=== PATIENT | female | born 1960 | race Caucasian/White ===

== ENCOUNTER 2018-03-02 13:49 | Emergency (ER) | payer MEDICARE, OTHER, SELFPAY ==
[2018-03-02 13:52] VITALS: BP 138/85; PULSE 60; RESP 18; TEMP 36.2; O2SAT 99
--- NOTE | 2018-03-02 14:49 | DI.RAD.S_ITS ---
PROCEDURE: XR RIBS BI 3V INDICATIONS: on going pain TECHNIQUE: 2 views of the left and 2 views of right ribs, along with an AP chest were acquired. COMPARISON: [facility], CR, CHEST 2VW, 08/01/2013, 14:53. [facility], CT, CT CHEST WITH CONTRAST, 10/05/2017, 11:18. FINDINGS: Surgical changes and devices: Surgical clips in the right breast and axilla. Bones and chest wall: Slight displaced right seventh rib fracture is present . No displaced left rib fractures are visualized. No fractures or dislocations. No suspicious bony lesions. Overlying soft tissues appear unremarkable. Lungs and pleura: The visualized lung appears clear. No pleural effusions or pneumothorax are visible. IMPRESSION: 1. Status post right seventh rib fracture. 2. No displaced left rib fracture. Dictated by: William Donovan M.D. on 03/02/2018 at 15:22 Approved by: William Donovan M.D. on 03/02/2018 at 15:29
--- NOTE | 2018-03-02 15:47 | ED_ITS ---
HPI - Trauma <Aylin Jones PA-C - Last Filed: 03/02/18 23:04> General Chief Complaint: Extremity Injury, Upper Stated Complaint: RIB PAIN, INJURY ON THE 5TH Time Seen by Provider: 03/02/18 14:26 Source: patient Mode of arrival: ambulatory Limitations: no limitations History of Present Illness HPI narrative: This 57-year-old female comes to the ED due to persistent rib pain for about 10 days. She states that she fell off her paddle board and when trying to get back up, she felt cracking in the right ribs. She later fell off again and when trying to get up on the left side felt similar pain and sensation. She states that she has had persistent pain since, worse on the right. Worse with coughing, sneezing, or pressure on the area. She states that worst pain is at night especially when she tries to roll over or get comfortable in bed. She does not have any marilia dyspnea, cough, or wheeze. She denies other chest pain or pain in the extremities. She states sometimes her abdomen feels full underneath her ribs but not persistent. She denies any other injury. She has been taking meloxicam regularly and states that she does okay during the day. She states she has a history of fractured ribs, history of lymphedema on the right side where her pain is worse as well as history of psoriatic arthritis. Related Data Home Medications Medication Instructions Recorded Confirmed LEVOTHYROXINE SODIUM (Synthroid) 25 mcg PO Q DAY #0 08/07/09 esomeprazole magnesium 40 mg PO DAILY 03/02/18 03/02/18 estradiol 03/02/18 03/02/18 etanercept [Enbrel SureClick] 1 dose SUB-Q QWEEK 03/02/18 03/02/18 ivermectin [Soolantra] 1 applic TOPICAL DIRECTED 03/02/18 03/02/18 liothyronine 03/02/18 03/02/18 lorazepam 03/02/18 03/02/18 meloxicam 15 mg PO DAILY 03/02/18 03/02/18 minocycline 100 mg PO DAILY 03/02/18 03/02/18 Previous Rx's Medication Instructions Recorded esomeprazole magnesium [Nexium] 40 mg PO DAILY #10 cap 03/02/18 meloxicam [Mobic] 15 mg PO DAILY #10 tab 03/02/18 Allergies Allergy/AdvReac Type Severity Reaction Status Date / Time No Known Drug Allergies Allergy Unknown Unverified 11/25/17 11:58 Review of Systems <GINEGR Bergeron Last Filed: 03/02/18 23:04> Review of Systems All systems reviewed & are unremarkable except as noted in HPI and below Exam <GINGER Bergeron Last Filed: 03/02/18 23:04> Narrative Exam Narrative: GENERAL APPEARANCE: Patient sitting comfortably, in no distress. NECK/THYROID: Neck supple LUNGS: Clear to auscultation bilaterally. HEART: Regular rate and rhythm without murmur, normal S1, S2, no S3 or S4. CHEST: TTP over right > left mid to inferior anterior ribs. No mid sternal TTP. ABDOMEN: Soft, NT, ND EXTREMITIES: No cyanosis or edema. DERM: No eccymoses or exanthem NEUROLOGIC: Alert and oriented, normal speech, gait and coordination. Initial Vital Signs Initial Vital Signs: Vital Signs Temperature 97.1 F L 03/02/18 13:52 Pulse Rate 60 03/02/18 13:52 Respiratory Rate 18 03/02/18 13:52 Blood Pressure 138/85 H 03/02/18 13:52 Pulse Oximetry 99 03/02/18 13:52 <DO Peter Thao Last Filed: 03/03/18 08:05> Initial Vital Signs Initial Vital Signs: Vital Signs Temperature 97.1 F L 03/02/18 13:52 Pulse Rate 60 03/02/18 13:52 Respiratory Rate 18 03/02/18 13:52 Blood Pressure 138/85 H 03/02/18 13:52 Pulse Oximetry 99 03/02/18 13:52 Course <GINGER Bergeron Last Filed: 03/02/18 23:04> Orders Ordered: ED Orders 03/02/18 14:49 XR ribs BI 3V Stat Vital Signs - 8 hr 03/02/18 16:21 Pulse Rate 57 L Respiratory Rate 14 Blood Pressure [Left Arm] 135/82 H Pulse Oximetry 100 <DO Peter Thao Last Filed: 03/03/18 08:05> Orders Ordered: ED Orders 03/02/18 14:49 XR ribs BI 3V Stat Vital Signs - 8 hr 03/02/18 16:21 Pulse Rate 57 L Respiratory Rate 14 Blood Pressure [Left Arm] 135/82 H Pulse Oximetry 100 MDM - Trauma <Aylin Jones PA-C - Last Filed: 03/02/18 23:04> Imaging Data Chest x-ray: Radiologist's impression: View Report History [address] [address] XRay Report Signed Patient: Kaylyn Joseph MR#: [id number] : 1960 Acct:[id number] Age/Sex: 57 / F Date of Service: 03/02/18 Loc: ED Accession Number: [id number] Procedure: XR ribs BI 3V Ordering Provider: Aylin Jones P.A-C PROCEDURE: XR RIBS BI 3V INDICATIONS: on going pain TECHNIQUE: 2 views of the left and 2 views of right ribs, along with an AP chest were acquired. COMPARISON: [facility], CR, CHEST 2VW, 08/01/2013, 14:53. [facility], CT, CT CHEST WITH CONTRAST, 10/05/2017, 11:18. FINDINGS: Surgical changes and devices: Surgical clips in the right breast and axilla. Bones and chest wall: Slight displaced right seventh rib fracture is present . No displaced left rib fractures are visualized. No fractures or dislocations. No suspicious bony lesions. Overlying soft tissues appear unremarkable. Lungs and pleura: The visualized lung appears clear. No pleural effusions or pneumothorax are visible. IMPRESSION: 1. Status post right seventh rib fracture. 2. No displaced left rib fracture. Dictated by: William Donovan M.D. on 03/02/2018 at 15:22 Approved by: William Donovan M.D. on 03/02/2018 at 15:29 Discharge Plan Departure Patient Disposition: Home, Self-Care Clinical Impression: Costochondritis, Closed rib fracture Discharge Date/Time: 03/02/18 16:39 Interventions: ED Discharge Assessment Last Done: 03/02/18 16:38 Instructions: DI for Rib Fracture, DI for Costochondritis Activity Restrictions/Additional Instructions: You have a fracture of your right 7th rib on your x-ray, which is 1 of the areas were you seem to be hurting most from what you describe. Given the nature of your injuries as well as known history of lymphedema and the psoriatic arthritis, I suspect that you mainly needs better pain control and time to get better. I have sent in a prescription for some more Meloxicam for you to continue as well as your Nexium until you can follow up with Dr. Triana. Please take 1 Tramadol tonight with tylenol, and you can increase the dose to 2 tabs if needed. This may be helpful for your night time pain. Continue the pillow hugging technique and focus on deep breaths several times daily. PT may be helpful as well. Return as we talked about if you have any acutely worsening symptoms. Prescriptions: New meloxicam [Mobic] 15 mg tablet 15 mg PO DAILY Qty: 10 RF: 0 esomeprazole magnesium [Nexium] 40 mg capsule,delayed release(DR/EC) 40 mg PO DAILY Qty: 10 RF: 0 Continue esomeprazole magnesium 40 mg capsule,delayed release(DR/EC) 40 mg PO DAILY RF: 0 No Action LEVOTHYROXINE SODIUM (Synthroid) 25 mcg PO Q DAY Qty: 0 RF: 0 minocycline 100 mg capsule 100 mg PO DAILY RF: 0 meloxicam 15 mg tablet 15 mg PO DAILY RF: 0 liothyronine 5 mcg tablet RF: 0 lorazepam 1 mg tablet RF: 0 estradiol 0.01 % (0.1 mg/gram) cream RF: 0 etanercept [Enbrel SureClick] 50 mg/mL (0.98 mL) pen injector 1 dose Sub-Q QWEEK RF: 0 ivermectin [Soolantra] 1 % cream 1 applic Topical DIRECTED RF: 0 <Juju Cummings, - Last Filed: 03/03/18 08:05> Cosign ED Attending Cosjoannature Attestation: I was immediately available in the department for consultation. Documentation has been reviewed. I agree with assessment and plan.
[2018-03-02 16:21] VITALS: BP 135/82; PULSE 57; RESP 14; O2SAT 100
== END 2018-03-02 16:39 | disposition home or self-care (01) ==
PROVIDERS: Emergency Provider Internal Medicine; PCP Family Medicine
DX: M94.0 Chondrocostal junction syndrome [Tietze] (principal); S22.39XA Fracture of one rib, unspecified side, initial encounter for closed fracture; W19.XXXA Unspecified fall, initial encounter; Y93.89 Activity, other specified
CPT/HCPCS: 71110; 99282; 99283

== ENCOUNTER → 2018-09-23 12:33 | Outpatient (CLI) | payer MEDICARE, OTHER, SELFPAY ==
--- NOTE | 2018-09-23 | DI.MRI.S_ITS ---
PROCEDURE: MR LUMBAR SPINE WO CON INDICATIONS: LOW BACK PAIN TECHNIQUE: Noncontrast sagittal T1 spin echo and T2 fast echo, coronal T2, sagittal STIR, axial T1 and T2 fast spin echo through the lumbar spine. COMPARISON: [facility], , L-SPINE WITHOUT CONTRAST, 03/30/2015, 14:01. [facility], CR, SPINE LUMB 6+VW, 03/02/2017, 11:22. FINDINGS: Image quality: Excellent. Alignment and Curvature: There are 5 lumbar-type vertebral bodies by plain film. There is mild rightward curvature of the upper lumbar spine. There is mild grade 1 retrolisthesis of L2 on L3, L3 on L4, and L5 on S1. Bone Marrow: Marrow is of normal overall signal. No acute vertebral body compression fractures. There is mild reactive signal within the endplates adjacent to the L1-L2 and L2-L3 intervertebral discs. Spinal Cord: Conus medullaris terminates at the L1-L2 disc space level. Visualized cord demonstrates normal signal and size. Paraspinous Soft Tissues: No paravertebral masses. L1-L2: Moderate disc height loss and desiccation. Mild diffuse disc bulge/osteophyte. Mild bilateral facet hypertrophy. Mild canal stenosis. Mild bilateral foraminal stenosis. No change. L2-L3: Moderate disc desiccation. Mild diffuse disc bulge. Mild facet hypertrophy. Mild epidural lipomatosis. Mild canal stenosis. Mild foraminal stenosis bilaterally. No change. L3-L4: Moderate disc desiccation. Mild diffuse disc bulge. Mild bilateral facet hypertrophy. Mild epidural lipomatosis. Mild canal stenosis. Mild bilateral foraminal stenosis. No change. L4-L5: Moderate disc desiccation. Mild diffuse disc bulge. Mild facet and ligamentum flavum hypertrophy. Mild canal stenosis. Mild bilateral foraminal stenosis. No change. L5-S1: Moderate disc height loss and desiccation. Mild diffuse disc bulge. Mild bilateral facet hypertrophy. Mild canal stenosis. Mild right foraminal stenosis. No left foraminal stenosis. No change. IMPRESSION: 1.Multilevel degenerative disc and facet disease, as well as ligamentum flavum hypertrophy and epidural lipomatosis. 2. Mild multilevel canal and foraminal stenoses, which are unchanged. Dictated by: Nina Joel M.D. on 09/23/2018 at 15:21 Approved by: Nina Joel M.D. on 09/23/2018 at 15:40
== END ==
PROVIDERS: PCP Family Medicine; Visit Provider Physical Medicine & Rehabilitation Pain Medicine
DX: M54.5 Low back pain (principal); M51.36 Other intervertebral disc degeneration, lumbar region; M48.061 Spinal stenosis, lumbar region without neurogenic claudication; M51.37 Other intervertebral disc degeneration, lumbosacral region; M48.07 Spinal stenosis, lumbosacral region; E88.2 Lipomatosis, not elsewhere classified
CPT/HCPCS: 72148

== ENCOUNTER → 2019-05-19 16:09 | Outpatient (CLI) | payer MEDICARE, OTHER, SELFPAY ==
--- NOTE | 2019-05-19 | DI.MRI.S_ITS ---
PROCEDURE: MR TMJ WO CON INDICATIONS: RIGHT JAW PAIN TECHNIQUE: Axial T1 spin echo, coronal and sagittal PD fast spin echo through the temporomandibular joints, in both the closed- and open-mouth positions. COMPARISON: None. FINDINGS: Image quality: Excellent. Right: Joint is normally aligned on closed and open-mouth positioning. Articular disk is anteriorly displaced in the closed mouth position. The anterior displaced articular disc reduces to a normal location in the open-mouth position. No bony erosions or osteophytes. Small right component and a joint effusion. Left: Joint is normally aligned on closed and open-mouth positioning. Articular disk demonstrates normal location and morphology. No bony erosions or osteophytes. IMPRESSION: 1. Anterior displacement of the right temporomandibular articular disc with reduction in the open-mouth position. 2. Small nonspecific right temporomandibular joint effusion. Dictated by: Joy Hugo MD, PhD on 05/20/2019 at 9:10 Approved by: Joy Hugo MD, PhD on 05/20/2019 at 9:24
--- NOTE | 2019-05-19 | DI.MRI.S_ITS ---
PROCEDURE: MR ORBITS FACE NECK WO CON INDICATIONS: RIGHT JAW PAIN TECHNIQUE: Noncontrast sagittal T1 spin echo, axial FLAIR, axial gradient echo, axial diffusion and ADC acquired through the brain. Coronal STIR, thin-slice axial T1 spin echo through the orbits. After the administration of contrast, thin-slice axial and coronal T1 spin echo with fat saturation through the orbits, axial T1 spin echo with fat saturation through the brain. COMPARISON: [facility], MR, MR TMJ WO CON, 05/19/2019, 16:43. FINDINGS: Image quality: Excellent. Neck: No lymphadenopathy based on size criteria. No mucosal based masses. No subglottic mass identified. The valleculae and piriform sinuses are normally aerated. The true and false vocal cords are normal in appearance. The parotid and submandibular glands are normal. 8mm nodule noted in the right lobe of the thyroid gland. 9 mm nodule in the left lobe of thyroid gland. CSF spaces: Ventricles are normal in size and shape. Basal cisterns are patent. No extra-axial fluid collections. Brain: The brain is incompletely visualized. No intracranial bleeds or mass effects. No abnormal intracranial enhancement. Meraz-white matter interface is intact. Diffusion weighted images demonstrate no acute ischemic insults. Pituitary gland appears normal, without sellar or suprasellar masses. Brainstem appears normal. Normal intravascular flow voids are present. Post procedure changes compatible bilateral scleral banding noted in the orbits. Skull and face: Calvarial marrow is normal in signal. Mild degenerative changes noted in the cervical spine. Sinuses: Visualized paranasal sinuses are clear. The mastoids are clear. IMPRESSION: 1. No lymphadenopathy based on size criteria. 2. No abnormal mass 3. No inflammatory changes or abnormal soft tissue fluid collections. 4. Small thyroid nodules. Recommend thyroid ultrasound for definitive characterization. Dictated by: Joy Hugo MD, PhD on 05/20/2019 at 10:13 Approved by: Joy Hugo MD, PhD on 05/20/2019 at 10:20
== END ==
PROVIDERS: PCP Family Medicine; Visit Provider Family Medicine
DX: R68.84 Jaw pain (principal); M26.69 Other specified disorders of temporomandibular joint; E04.2 Nontoxic multinodular goiter
CPT/HCPCS: 70336; 70540

== ENCOUNTER 2019-07-18 18:28 | Emergency (ER) | payer MEDICARE, OTHER, SELFPAY ==
--- NOTE | 2019-07-18 18:34 | DI.RAD.S_ITS ---
PROCEDURE: XR FOOT LT MIN 3V INDICATIONS: Missed a step, obvious hematoma TECHNIQUE: 3 views of the foot were acquired. COMPARISON: None. FINDINGS: Bones: No unstable fractures or dislocations but there is an old avulsion fragment from the superior margin of the navicular bone, with a clear donor site seen on the lateral view associated with the superior elevation of the avulsion fragment, which measures approximately 3 x 4 mm.. No suspicious bony lesions. Soft tissues: No tibiotalar joint effusion. Achilles tendon appears normal. IMPRESSION: An unstable cortical fracture is not present but there is a traction ligamentous injury at the attachment along the superior margin of the navicular bone with displaced evulsion fragment as noted. Soft tissue swelling is associated. Dictated by: Macario Varma M.D. on 07/18/2019 at 19:05 Approved by: Macario Varma M.D. on 07/18/2019 at 19:06
[2019-07-18 18:35] VITALS: BP 118/62; PULSE 57; RESP 16; O2SAT 100
[2019-07-18 19:55] VITALS: PULSE 70
--- NOTE | 2019-07-18 20:24 | PC.NURSE ---
CSM intact distal to injury.
--- NOTE | 2019-07-18 20:52 | ED.LOWEXIN ---
HPI - Extremity Injury (Lower) <SHIRLEY Oconnor - Last Filed: 07/18/19 20:58> General Chief Complaint: Extremity Injury, Lower Stated Complaint: LEFT FOOT INJURY Time Seen by Provider: 07/18/19 18:33 Source: patient Mode of arrival: Ambulatory Limitations: no limitations History of Present Illness HPI Narrative: The patient is a 59-year-old female nonsmoker with history of foot fracture who presents with a chief complaint of left foot pain. She states she tripped and had sudden pain over the top of her left foot. She states she has a history of fracture on that side. She has taken Tylenol and Motrin, states that she was not eating or pain. she denies any left ankle pain. She does not take any blood thinners. She denies any other injuries from the, denies any head pain, neck pain back pain or loss of consciousness. She states is isolated foot injury. Related Data Home Medications Medication Instructions Recorded Confirmed LEVOTHYROXINE SODIUM (Synthroid) 25 mcg PO Q DAY #0 08/07/09 esomeprazole magnesium 40 mg PO DAILY 03/02/18 03/02/18 estradiol 03/02/18 03/02/18 etanercept [Enbrel SureClick] 1 dose SUB-Q QWEEK 03/02/18 03/02/18 ivermectin [Soolantra] 1 applic TOPICAL DIRECTED 03/02/18 03/02/18 liothyronine 03/02/18 03/02/18 lorazepam 03/02/18 03/02/18 meloxicam 15 mg PO DAILY 03/02/18 03/02/18 minocycline 100 mg PO DAILY 03/02/18 03/02/18 Previous Rx's Medication Instructions Recorded esomeprazole magnesium [Nexium] 40 mg PO DAILY #10 cap 03/02/18 meloxicam [Mobic] 15 mg PO DAILY #10 tab 03/02/18 Allergies Allergy/AdvReac Type Severity Reaction Status Date / Time No Known Drug Allergies Allergy Unknown Unverified 11/25/17 11:58 Review of Systems <SHIRLEY Oconnor - Last Filed: 07/18/19 20:58> Review of Systems Narrative: GENERAL: Denies chills, fatigue, malaise, fever, sweats. HEENT: Denies sinus pain, ear pain, sore throat, difficulty swallowing, dizziness. RESPIRATORY: Denies dyspnea, cough, wheezing, hemoptysis, sputum. CARDIOVASCULAR: Denies chest pain, palpitations, orthopnea, edema, GASTROINTESTINAL: Denies nausea, vomiting, abdominal pain, diarrhea, constipation, melena. : Denies dysuria, frequency, incontinence, hematuria, urinary retention. MUSCULOSKELETAL: See HPI SKIN: See HPI NEUROLOGIC: Denies weakness, headache, numbness, change in speech, confusion, seizures, incoordination. PSYCHIATRIC: No concerning psychosocial issues. 12 point review of systems is negative except for those stated above Patient History <SHIRLEY Oconnor - Last Filed: 07/18/19 20:58> Medical History History of breast cancer (Resolved) History of nephrolithiasis (Chronic) Hx of fracture of rib (Chronic) Lymphedema (Chronic) Psoriatic arthritis (Chronic) Surgical History History of eye surgery (Resolved) History of mastectomy (Resolved) Social History Smoking Status: Never smoker alcohol intake frequency: holidays/special occasions only Substance Use Type: does not use Exam <SHIRLEY Oconnor - Last Filed: 07/18/19 20:58> Narrative Exam Narrative: GENERAL: This is a well-nourished, well-developed patient, no acute distress HEAD: Atraumatic. Normocephalic. No temporal or scalp tenderness. EYES: Pupils equal round and reactive. Extraocular motions intact. No scleral icterus. No injection or drainage. ENT: Nose without bleeding, purulent drainage or septal hematoma. Throat without erythema, tonsillar hypertrophy or exudate. Uvula midline. Airway patent. NECK: Trachea midline. No JVD or lymphadenopathy. Supple, nontender, no meningeal signs. CARDIOVASCULAR: Regular rate and rhythm RESPIRATORY: No cough. No increased respiratory effort. No accessory muscle use. EXTREMITIES: Positive pedal pulses. capillary refill less than 2 seconds all toes left foot. Full range of motion noted all toes. No pain to palpation left ankle. Pain to palpation over left navicular. BACK: Nontender without deformity or crepitance. No flank tenderness. no pain to CT or L-spine. NEURO: AOx3. SKIN: 4 x 4 cm ecchymosis noted over dorsum of left foot, lateral to navicular. Initial Vital Signs Initial Vital Signs: Vital Signs Pulse Rate 57 L 07/18/19 18:35 Respiratory Rate 16 07/18/19 18:35 Blood Pressure 118/62 07/18/19 18:35 Pulse Oximetry 100 07/18/19 18:35 <Kirk Unger DO - Last Filed: 07/19/19 00:59> Initial Vital Signs Initial Vital Signs: Vital Signs Pulse Rate 57 L 07/18/19 18:35 Respiratory Rate 16 07/18/19 18:35 Blood Pressure 118/62 07/18/19 18:35 Pulse Oximetry 100 07/18/19 18:35 Procedures <SHIRLEY Oconnor - Last Filed: 07/18/19 20:58> Orthopedic Splinting/Casting Injury #1: Side: left Lower Extremity Immobilizer: boot orthosis Other Orthopedic Equipment: crutches Post splinting neuro exam: intact Post splinting vascular exam: intact Placed by: Nursing Course <SHIRLEY Oconnor - Last Filed: 07/18/19 20:58> Orders Ordered: ED Orders 07/18/19 18:34 XR foot LT min 3V Stat Vital Signs Vital signs: Vital Signs - 8 hr 07/18/19 18:35 07/18/19 19:55 Pulse Rate 57 L Pulse Rate [Left Dorsalis Pedis] 70 Respiratory Rate 16 Blood Pressure 118/62 Pulse Oximetry 100 <Kirk Unger DO - Last Filed: 07/19/19 00:59> Orders Ordered: ED Orders 07/18/19 18:34 XR foot LT min 3V Stat Vital Signs Vital signs: Vital Signs - 8 hr 07/18/19 18:35 07/18/19 19:55 Pulse Rate 57 L Pulse Rate [Left Dorsalis Pedis] 70 Respiratory Rate 16 Blood Pressure 118/62 Pulse Oximetry 100 MDM - Extremity Injury (Lower) <SHIRLEY Oconnor - Last Filed: 07/18/19 20:58> Imaging Data Foot x-ray: Radiologist's impression: [address] [address] XRay Report Signed Patient: Kaylyn Joseph [facility]#: [id number] : 1960Acct:[id number] Age/Sex: 59 / FDate of Service: 07/18/19 Loc: ED Accession Number: [id number] Procedure: XR foot LT min 3V Ordering Provider: Carolina Augustin [employer]ICAL ATHLETIC INSTRUCTOR-BC PROCEDURE: XR FOOT LT MIN 3V INDICATIONS: Missed a step, obvious hematoma TECHNIQUE: 3 views of the foot were acquired. COMPARISON: None. FINDINGS: Bones: No unstable fractures or dislocations but there is an old avulsion fragment from the superior margin of the navicular bone, with a clear donor site seen on the lateral view associated with the superior elevation of the avulsion fragment, which measures approximately 3 x 4 mm.. No suspicious bony lesions. Soft tissues: No tibiotalar joint effusion. Achilles tendon appears normal. IMPRESSION: An unstable cortical fracture is not present but there is a traction ligamentous injury at the attachment along the superior margin of the navicular bone with displaced evulsion fragment as noted. Soft tissue swelling is associated. Dictated by: Macario Varma M.D. on 07/18/2019 at 19:05 Approved by: Macario Varma M.D. on 07/18/2019 at 19:06 [facility] Narrative Medical decision making narrative: The patient is a 59-year-old female who presents with a chief complaint of foot pain after tripping. X-ray indicates a navicular fracture, questionable new versus old. Patient is neurovascularly intact, films reviewed by Dr. Edouard from [facility], who states that the patient can follow up with them. She was placed in a boot and crutches per Orthopedics. Patient did not want any pain medication. Discussed at length rest ice compression elevation. Patient left prior to discharge instructions as she had to ?make a ferry. Discharge Plan Departure Patient Disposition: Home Clinical Impression: Navicular fracture, foot Qualifiers: Encounter type: initial encounter Fracture type: closed Fracture alignment: nondisplaced Laterality: left Qualified Code(s): S92.255A - Nondisplaced fracture of navicular [scaphoid] of left foot, initial encounter for closed fracture Discharge Date/Time: 07/18/19 20:29 Instructions: DI for Tarsal Navicular Fracture Prescriptions: No Action LEVOTHYROXINE SODIUM (Synthroid) 25 mcg PO Q DAY Qty: 0 RF: 0 minocycline 100 mg capsule 100 mg PO DAILY RF: 0 meloxicam 15 mg tablet 15 mg PO DAILY RF: 0 liothyronine 5 mcg tablet RF: 0 esomeprazole magnesium 40 mg capsule,delayed release(DR/EC) 40 mg PO DAILY RF: 0 lorazepam 1 mg tablet RF: 0 estradiol 0.01 % (0.1 mg/gram) cream RF: 0 etanercept [Enbrel SureClick] 50 mg/mL (0.98 mL) pen injector 1 dose Sub-Q QWEEK RF: 0 ivermectin [Soolantra] 1 % cream 1 applic Topical DIRECTED RF: 0 meloxicam [Mobic] 15 mg tablet 15 mg PO DAILY Qty: 10 RF: 0 esomeprazole magnesium [Nexium] 40 mg capsule,delayed release(DR/EC) 40 mg PO DAILY Qty: 10 RF: 0 Referrals: Evans Triana MD [Primary Care Provider] -
== END 2019-07-18 20:29 | disposition home or self-care (01) ==
PROVIDERS: Emergency Provider Nurse Practitioner Family; PCP Family Medicine
DX: S92.255A Nondisplaced fracture of navicular [scaphoid] of left foot, initial encounter for closed fracture (principal); W18.40XA Slipping, tripping and stumbling without falling, unspecified, initial encounter
CPT/HCPCS: 29515; 29580; 73630; 99282; 99283

== ENCOUNTER → 2019-09-08 11:39 | Outpatient (CLI) | payer MEDICARE, OTHER, SELFPAY ==
--- NOTE | 2019-09-08 | DI.MRI.S_ITS ---
PROCEDURE: MRFOOT LT WO CON INDICATIONS: displaced fracture of anterior process TECHNIQUE: Noncontrast sagittal T1 spin echo and T2 fast spin echo with fat saturation, long-axis T1 spin echo and T2 fast spin echo with fat saturation, short-axis T1 spin echo and T2 fast spin echo with fat saturation through the forefoot. COMPARISON: [facility] [place], CR, XR FOOT 3+ VIEWS LEFT, 07/21/2019, 9:12. [facility], CR, XR FOOT LT MIN 3V, 07/18/2019, 18:38. FINDINGS: Image quality: Excellent. Bones and joints: There is soft tissue swelling and edema in the region of the dorsal aspect of the navicular where there is avulsion fracture better seen radiographically for example comparison study dated 07/18/19. There is minimal adjacent extensor digitorum longus tenosynovitis Fracture of the anterior process of the calcaneus better seen radiographically on the prior study. This could be better characterized with dedicated MRI ankle if clinically necessary Soft tissues: The visualized plantar foot muscles demonstrate normal signal and bulk. Visualized flexor and extensor tendons appear intact, without tenosynovitis. The distal insertions of the peroneus brevis and longus tendons appear intact. The principal Lisfranc ligament appears intact. There is plantar subcutaneous edema at the level of the fifth metatarsal head. Mild first-second intermetatarsal bursitis noted, image 23/8 Sagittal images demonstrate no evidence for plantar plate tears. IMPRESSION: Soft tissue swelling and edema in the region of the dorsal cortex of the navicular in the region of radiographically visualize a posterior fracture seen on the prior studies Mild first and second intermetatarsal bursitis Plantar subcutaneous edema the level of the fifth metatarsal head which could reflect soft tissue contusion, developing adventitial bursitis, technically non-specific. Dictated by: Clement Mehta M.D. on 09/08/2019 at 13:15 Approved by: Clement Mehta M.D. on 09/08/2019 at 14:05
== END ==
PROVIDERS: PCP Family Medicine; Visit Provider Podiatrist
DX: S92.022A Displaced fracture of anterior process of left calcaneus, initial encounter for closed fracture (principal); M77.52 Other enthesopathy of left foot and ankle
CPT/HCPCS: 73718

== ENCOUNTER → 2019-09-13 06:37 | Outpatient (CLI) | payer MEDICARE, OTHER, SELFPAY ==
--- NOTE | 2019-09-13 | DI.MRI.S_ITS ---
PROCEDURE: MR ANKLE LT WO CON INDICATIONS: Displaced fracture of anterior process of left marlee TECHNIQUE: Noncontrast sagittal T1 spin echo and T2 fast spin echo with fat saturation, axial proton density fast spin echo and T2 fast spin echo with fat saturation, coronal T1 spin echo and T2 fast spin echo with fat saturation through the ankle/hindfoot. COMPARISON: [facility], CR, XR FOOT LT MIN 3V, 07/18/2019, 18:38. [facility] [place], CR, XR FOOT 3+ VIEWS LEFT, 07/21/2019, 9:12. FINDINGS: Image quality: Excellent. Bones and joints: Fracture of the anterior process of the calcaneus, probably acute versus subacute. Avulsion of the dorsal navicular again noted. No hindfoot coalitions. No osteochondral injuries of the talar dome. No pathologic joint effusions. Medial structures: The posterior tibialis, flexor digitorum longus, and flexor hallucis longus tendons are intact. The posterior tibial neurovascular bundle appears normal within the tarsal tunnel, without extrinsic mass effect. The deep layer (anterior and posterior tibiotalar ligaments) and superficial layer (tibionavicular, tibiospring, and tibiocalcaneal ligaments) of the deltoid ligament appear normal. The spring ligament components (superomedial calcaneonavicular, medioplantar oblique calcaneonavicular, and inferoplantar longitudinal ligaments) are intact. Lateral structures: The anterior talofibular, calcaneofibular, and posterior talofibular ligaments appear intact. More superiorly, the anterior and posterior tibiofibular ligaments appear intact, as is the intermalleolar ligament. The tibiofibular syndesmosis is normal in width at 2 mm or less. The peroneus longus and brevis tendons demonstrate normal location and morphology. Adjacent bony peroneal tubercle and retrotrochlear prominence are normal in size. The sinus tarsi demonstrates normal fatty signal, without edema, fibrosis, or cyst formation. Visualized sinus tarsi components (cervical ligament, interosseous talocalcaneal ligament, roots of the inferior extensor retinaculum) appear normal. The calcaneonavicular and calcaneocuboid components of the bifurcate ligament appear intact. The dorsal calcaneocuboid ligament appears intact. Anterior structures: There is marked thickening and poor visualization of the dorsal talonavicular ligament, probably ruptured. There is adjacent soft tissue edema, extending to the lateral extensor retinaculum although thought to be intact. Cannot exclude sprain. The tibialis anterior, extensor hallucis longus, and extensor digitorum longus tendons appear intact. The dorsal talonavicular ligament appears intact. Posterior and plantar structures: Achilles tendon is intact. Minimal retrocalcaneal bursal fluid Medial and lateral bands of the plantar fascia are of normal thickness. No abductor digiti quinti muscle atrophy to suggest Arboleda neuropathy. IMPRESSION: Acute sprain/rupture of the dorsal talonavicular ligament, and possible sprain of the lateral extensor retinaculum. Associated soft tissue edema, and avulsion of the dorsal navicular surface as previously radiographically identified. Small fracture of the anterior process of the calcaneus, subacute. There is persistent marrow edema Dictated by: Clement Mehta M.D. on 09/13/2019 at 8:15 Approved by: Clement Mehta M.D. on 09/13/2019 at 8:23
== END ==
PROVIDERS: PCP Family Medicine; Visit Provider Podiatrist
DX: S92.022A Displaced fracture of anterior process of left calcaneus, initial encounter for closed fracture (principal); S93.492A Sprain of other ligament of left ankle, initial encounter; X58.XXXA Exposure to other specified factors, initial encounter
CPT/HCPCS: 73721